=== PATIENT | female | born 1950 | race African-American/Black ===

== ENCOUNTER 2017-02-24 08:27 | Emergency (ER) | payer OTHER ==
--- NOTE | ~2017-02-24 | EKG ---
PATIENT: INES RUTH UNIT #: [id number] Ventricular Rate: 80 BPM Atrial Rate: 80 BPM P-R Interval: 162 ms QRS Duration: 86 ms Q-T Interval: 404 ms QTC Calculation(Bezet): 465 ms P Price: 26 degrees Calculated R Price: -13 degrees Calculated T Price: -60 degrees Diagnosis Line: Normal sinus rhythm with sinus arrhythmia Diagnosis Line: Voltage criteria for left ventricular hypertrophy Diagnosis Line: Nonspecific ST and T wave abnormality Diagnosis Line: Borderline ECG Diagnosis Line: No previous ECGs available Diagnosis Line: Confirmed by LUCILA ZAMBRANO MD ([id number]) on 02/24/2017 Diagnosis Line: 10:09:24 AM INTERPRETING MD: KENYA SORENSEN
--- NOTE | ~2017-02-24 | CR72 ---
[facility] A Service of [facility] & [facility] RADIOLOGY TEXT RESULTS PATIENT: INES RUTH LOCATION: [facility] : 54 UNIT #: [id number] AGE: [address]: Ruth Kirkland MD SEX: F ORDER DR: [id number] [facility] [address] [place], [place] [address] [id number] MR#: [id number] Acc #: [id number] NAME: INES RUTH : 1950 SEX: F STUDY DATE/TIME: 02/24/2017 9:06 UNIT: [facility] ROOM: STUDY DESCRIPTION: CR Chest Single View Portable Attending Physician: Ruth Kirkland M.D. Ordering Physician: Ruth Kirkland M.D. Primary Care Physician: Generic Doctor Not In System MEDICAL IMAGING REPORT This report is preliminary unless electronic signature is present EXAM Portable chest, 02/24 HISTORY Cough, congestion, shortness of air, chest pain and fever for 5 days. FINDINGS AP portable chest is compared with 12/30/2012. Heart is enlarged. There is some mild atelectasis in the bases. The lungs otherwise are clear. No pneumothorax is seen. IMPRESSION Stable cardiomegaly with mild bibasilar atelectasis. Dictated by... Peng Kay Jr., M.D. THIS IS AN ELECTRONICALLY VERIFIED REPORT Peng Kay Jr., M.D. at 02/24/2017 4:59 PM MARYBETH/christian TD: 02/24/2017 10:52 JOB #: [id number] MEDICAL IMAGING REPORT Page 1 of 1 COPY
[~2017-02-24 08:27] MED LIST: ASPIRIN81 M2 PO; ATORVASTATIN CA20 MG PO; CADUET 10 MG/201 TAB PO; DULCOLAX5 MG PO; HCTZ PO; HYDROCODON-ACE1 EAC7 PO; LISINOPRIL20 MG PO
[2017-02-24 09:24] LABS: BASOPHIL# 0.1 X10e3 (0-0.3); BASOPHIL% 0.5 % (0-2.5); DIFF IND NO; EOSINOPHIL# 0.5 X10e3 (0-0.7); EOSINOPHIL% 4.3 % (0.0-7.0); HEMATOCRIT 38.3 % (35.0-45.0); HEMOGLOBIN 12.5 gm/dL (12.0-16.0); LYMPHOCYTE# 2.9 X10e3 (1.0-3.5); LYMPHOCYTE% 23.5 % (17.0-45.0); MEAN CELL VOLUME 95.6 FL (83-96); MEAN CORPUSCULAR HEMOGLOBIN 31.2 PG (28-34); MEAN CORPUSCULAR HGB CONC 32.6 g/dL (30-36); MEAN PLATELET VOLUME 10.6 FL (6.5-11.5); MONOCYTE# 1.1 X10e3 (0-1.0); NEUTROPHIL# 7.8 X10e3 (1.5-7.1); NEUTROPHIL% 62.7 % (40-75); PLATELET COUNT 165 X10e3 (140-420); RED BLOOD COUNT 4.01 X10e (3.90-5.30); RED CELL DISTRIBUTION WIDTH 13.6 % (11.0-15.5); WHITE BLOOD COUNT 12.4 X10e3 (4.0-10.5)
[2017-02-24 09:47] LABS: URINE SOURCE CLEAN CATCH
[2017-02-24 09:49] LABS: ALBUMIN SERUM 3.5 g/dL (3.5-5.0); BILIRUBIN, DIRECT 0.2 mg/dL (0.0-0.2); BILIRUBIN,INDIRECT 0.4 mg/dL (0.0-0.9); BILIRUBIN,TOTAL 0.6 mg/dL (0.2-2.0); BUN/CREATININE RATIO 8.57; CALCIUM SERUM 8.8 mg/dL (8.4-10.2); CREATININE SERUM 1.4 mg/dL (0.6-1.4); GLOM FILT RATE Estimated 45.9 mL/min (>60); POTASSIUM 3.3 mmol/L (3.5-5.1); PROTEIN TOTAL SERUM 7.9 g/dL (6.0-8.3)
[2017-02-24 09:51] LABS: URINE APPEARANCE CLEAR; URINE BILIRUBIN NEG (NEG); URINE BLOOD TRACE (NEG); URINE COLOR DK YELLOW; URINE GLUCOSE NEG (NEG); URINE KETONE NEG (NEG); URINE LEUKOCYTE ESTERASE 1+ (NEG); URINE NITRATE NEG (NEG); URINE PH 5.5 (5-8); URINE PROTEIN 1+ (NEG); URINE SPECIFIC GRAVITY 1.019 (1.003-1.035)
[2017-02-24 09:55] LABS: CULTURE INDICATED? YES; URINE BACTERIA AUWI 1+ (NEGATIVE); URINE SQUAMOUS EPITHELIAL CELL FEW /[HPF]
[2017-02-24 10:22] LABS: URINE GRANULAR CAST 0-2 /[HPF]
[2017-02-24 10:48] LABS: INFLUENZA A NEG (NEG); INFLUENZA B NEG (NEG)
== END 2017-02-24 11:03 | disposition home or self-care (01) ==
LOC: CED 08:27
PROVIDERS: Emergency Medicine
DX: J20.9 Acute bronchitis, unspecified (principal); E11.9 Type 2 diabetes mellitus without complications; K21.9 Gastro-esophageal reflux disease without esophagitis; E78.5 Hyperlipidemia, unspecified; I10 Essential (primary) hypertension; I25.10 Atherosclerotic heart disease of native coronary artery without angina pectoris; Z88.0 Allergy status to penicillin; Z88.2 Allergy status to sulfonamides; Z91.040 Latex allergy status
CPT/HCPCS: 71010; 80048; 80076; 81003; 82947; 83605; 83880; 85025; 87086; 87804; 93005; 99284